=== PATIENT | female | born 1975 | race Caucasian/White ===

== ENCOUNTER 2018-06-29 22:39 | Emergency (ER) | payer OTHER ==
[~2018-06-29] VITALS: Ht 154.9 cm; Wt 88.5 kg
[2018-06-29 22:54] VITALS: Ht 154.9 cm; Wt 88.5 kg
[2018-06-30 00:39] VITALS: BP 110/74
== END 2018-06-30 00:39 | disposition home or self-care (01) ==
LOC: ED 22:39
DX: M54.9 Dorsalgia, unspecified (principal); V49.88XA Car occupant (driver) (passenger) injured in other specified transport accidents, initial encounter; Y93.I9 Activity, other involving external motion; Y92.413 State road as the place of occurrence of the external cause; Y99.8 Other external cause status
CPT/HCPCS: J1885